=== PATIENT | female | born 2000 | race Caucasian/White ===

== ENCOUNTER 2022-07-03 07:57 | Inpatient (IN) | payer BC, OTHER ==
[2022-07-03] MEDS ORDERED: miSOPROStoL 200 MCG TAB PO PRN (08:16)
[2022-07-03] MEDS ORDERED: TRANEXAMIC ACID IN NACL,ISO-OS 1,000 MG in EMPTY BAG 1 BAG IV PRN (08:16)
[2022-07-03] MEDS ORDERED: LACTATED RINGERS 1,000 ML IV ONE (08:16)
[2022-07-03] MEDS ORDERED: CARBOPROST TROMETHAMINE 250 MCG/ML 1 ML AMP IM PRN (08:16)
[2022-07-03] MEDS ORDERED: OXYTOCIN 10 UNIT/ML 1 ML VIAL IM PRN (08:16)
[2022-07-03] MEDS ORDERED: CITRIC ACID-SODIUM CITRATE 15 ML CUP PO ONE (08:16)
[2022-07-03] MEDS ORDERED: METHYLERGONOVINE 0.2 MG/ML 1 ML AMP IM PRN (08:16)
[2022-07-03 08:32] LABS: Basophils % (A) 0 %; Eosinophils # (A) 0.1 k/uL (0-0.7); Eosinophils % (A) 1 %; HCT 36.8 % (34.0-46.0); HGB 11.7 gm/dL (11.4-16.0); Lymphocytes # (A) 2.3 k/uL (1.0-4.8); Lymphocytes % (A) 19 %; MCH 27.7 pg (25.0-35.0); MCHC 31.8 g/dL (31.0-37.0); MCV 87.3 fL (80.0-100.0); Mean Platelet Volume 7.9; Monocytes # (A) 0.7 k/uL (0-1.0); Monocytes % (A) 5 %; Neutrophils % (A) 72 %; Platelet Count 350 k/uL (150-450); RBC 4.22 m/uL (3.80-5.40); RDW 15.3 % (11.5-15.5); WBC 12.4 k/uL (3.8-10.6)
[2022-07-03] MEDS ORDERED: OXYTOCIN 30 UNITS/500 ML NS BAG IV ONE (09:58)
[2022-07-03] MEDS ORDERED: MORPHINE SULFATE (PF) 0.3 MG/0.3 ML SYR ONE (09:58)
[2022-07-03] MEDS ORDERED: KETOROLAC 15 MG/ML 1 ML VIAL ONE (09:58)
[2022-07-03] MEDS ORDERED: ONDANSETRON 4 MG/2 ML VIAL ONE (09:58)
[2022-07-03] MEDS ORDERED: DEXAMETHASONE SOD PHOSPHATE 4 MG/ML 1 ML VIAL ONE (09:58)
[2022-07-03] MEDS ORDERED: NALBUPHINE 10 MG/ML (1 ML AMP) ONE (09:58)
[2022-07-03] MEDS ORDERED: ePHEDrine 50 MG/ML 1 ML VIAL ONE (09:58)
[2022-07-03] MEDS ORDERED: NALOXONE 0.4 MG/ML 1 ML VIAL IV PRN ×2 (10:47→11:02)
--- NOTE | 2022-07-03 10:58 | P.HPOB ---
History of Present Illness H&P Date: 07/03/22 Chief Complaint: Breech At term This is a 21-year-old 1 para 0 woman with an estimated due date of 07/07/2022 who is admitted at 39-3/7 weeks gestation for planned primary low transverse section secondary to persistent breech presentation. Breech presentation is confirmed by ultrasound. has been otherwise uncomplicated. She has a history of migraine headaches. Blood type O+, antibody screen negative, rubella immune, VDRL nonreactive, hepatitis B surface antigen negative, group B strep negative, gonorrhea and clinic cultures negative Review of Systems All systems: negative Past Medical History Past Medical History: GERD/Reflux History of Any Multi-Drug Resistant Organisms: None Reported Additional Past Surgical History / Comment(s): exploratory lap for endometriosis, EGD, wisdom teeth removed Past Anesthesia/Blood Transfusion Reactions: No Reported Reaction Past Psychological History: Anxiety, Depression Additional Psychological History / Comment(s): used to take med, but not during Smoking Status: Former smoker Past Alcohol Use History: None Reported Additional Past Alcohol Use History / Comment(s): smoked before , since teens, <ppd, no alcohol during Past Drug Use History: Marijuana Additional Drug Use History / Comment(s): before - Past Family History Father Family Medical History: Unable to Obtain Additional Family Medical History / Comment(s): pt is adopted, no info on bio family Medications and Allergies Home Medications Medication Instructions Recorded Confirmed Type Vit No.179/Iron/Folic 1 each PO DAILY 06/29/22 07/03/22 History [ Tablet] Allergies Allergy/AdvReac Type Severity Reaction Status Date / Time amoxicillin AdvReac states Verified 07/03/22 08:15 "doesn't work for me" Exam Vital Signs Temp Pulse Resp BP Pulse Ox 07/03/22 08:36 98.0 F 120 H 18 121/72 98 Intake and Output 07/02/22 07/03/22 07/03/22 22:59 06:59 14:59 Other: Weight 90.718 kg This is a pleasant, visibly gravid female in no apparent distress. HEENT exam is unremarkable. Her breathing is unlabored and her heart is a regular rate and rhythm. The abdomen is gravid, soft and nontender with no palpable contractions. No flank pain. Plus bilateral lower extremity asymmetric edema. Pelvic examination is deferred. Bedside ultrasound confirms breech presentation. heart tones are category 1 and she is irregularly ernesto. Results Result Diagrams: 07/03/22 08:20 Abnormal Lab Results - Last 24 Hours (Table) 07/03/22 Range/Units 08:20 WBC 12.4 H (3.8-10.6) k/uL Neutrophils # 9.0 H (1.3-7.7) k/uL Assessment and Plan (1) Breech presentation Current Visit: Yes Status: Acute Code(s): O32.1XX0 - MATERNAL CARE FOR JAYCEE ECH PRESENTATION, UNSP SNOMED Code(s): 9720329 (2) Term Current Visit: Yes Status: Acute Code(s): Z34.90 - ENCNTR FOR SUPRVSN OF NORMAL , UNSP, UNSP TRIMESTER SNOMED Code(s): 82654624 Plan: This is a 21-year-old 1 para 0 at 39-3/7 weeks gestation admitted for scheduled primary low transverse section secondary to persistent breech presentation. The procedure has been reviewed with the patient in detail and risks include but are not limited to bleeding, transfusion, infection, maternal or injury, anesthesia complications, implications for future pregnancies. Consent has been obtained. status is reassuring by external monitoring. Time with Patient: Less than 30
[2022-07-03] MEDS ORDERED: SIMETHICONE 80 MG CHEWABLE PO PRN (11:02)
[2022-07-03] MEDS ORDERED: HYDROmorphone 1 MG/ML 1 ML SYRINGE IVP PRN (11:02)
[2022-07-03] MEDS ORDERED: diphenhydrAMINE 50 MG/ML 1 ML VIAL IVP PRN (11:02)
[2022-07-03] MEDS ORDERED: ONDANSETRON 4 MG/2 ML VIAL IVP PRN (11:02)
[2022-07-03] MEDS ORDERED: ZOLPIDEM 5 MG TAB PO PRN (11:02)
[2022-07-03] MEDS ORDERED: diphenhydrAMINE 25 MG CAP PO PRN (11:02)
[2022-07-03] MEDS ORDERED: diphenhydrAMINE 50 MG CAP PO PRN (11:02)
[2022-07-03] MEDS ORDERED: METOCLOPRAMIDE 5 MG/ML 2 ML VIAL IVP PRN (11:02)
--- NOTE | 2022-07-03 11:02 | P.OP ---
Date of Procedure: 07/03/22 Preoperative Diagnosis: Term at 39-3/7 weeks Breech presentation Postoperative Diagnosis: Same Procedure(s) Performed: Primary low transverse section Anesthesia: spinal Surgeon: Shazia Arias Skip Operator #1: Felix Szymanski Estimated Blood Loss (ml): 730 IV fluids (ml): 1,000 Urine output (ml): 200 Pathology: none sent Condition: stable Disposition: floor Indications for Procedure: Persistent breech presentation Operative Findings: Male infant in the complete breech presentation with Apgars of 9 at 1 minute and 9 at 5 minutes weighing 6 lbs. 14 oz., 3120 g. Normal-appearing bilateral fallopian tubes, ovaries and uterus. Description of Procedure: After the patient was met in the preoperative holding area and all portions were answered, she was taken to the operating room where spinal anesthetic was administered without incident. She was in positioned, prepped and draped in the dorsal supine position with a leftward tilt. Cheng catheter was in place. After anesthetic was confirmed adequate a low transverse skin incision was made and carried down to the underlying fascia sharply and with the electrocautery. Fascia was incised in the midline and extended bilaterally with Costa scissors. The superior aspect of the fascial incision was elevated and the underlying rectus muscles were dissected off sharply. The inferior aspect of the fascial incision was also elevated and the underlying rectus muscles dissected off sharply. Rectus muscles were bluntly in the midline and the peritoneum was tented up and entered sharply. The peritoneal incision was extended inferiorly and superiorly with good visualization of the bladder. Bladder blade was placed. Vesicouterine peritoneum was identified, tented up and the bladder flap was created sharply. Bladder blade was replaced and a low transverse uterine incision was made. This was carried down to the underlying amniotic membranes sharply. Membranes were ruptured and clear fluid was noted. Off was present at the incision. was found to be in the complete breech presentation. Both feet were grasped and gently delivered from the incision. The infant was rotated 12 for delivery of the sacrum anterior. The infant was then further delivered gently to the level of the scapula. Rotation allow for delivery of the anterior and posterior shoulders. The head was flexed and delivered without difficulty. The nose and mouth were bulb suctioned and the infant was handed off to the nursing staff. An intact, three-vessel cord placenta was then manually removed. The uterus was exteriorized and cleared of all clot and debris. The uterine incision was then closed in a running locked fashion with 0 Vicryl suture followed by second imbricating layer of the same. Additional [id number] sutures 2 were placed for hemostasis. The uterus was returned to the abdomen and the gutters were cleared of all clot and debris. The uterine incision was reinspected and additional [id number] suture 1 was placed. There was some oozing noted along the interior of the bladder flap therefore the Surgicel powder was placed and hemostasis was noted. The rectus muscles, fascial edges and peritoneal edges were all inspected and noted to be hemostatic. Bovie electrocautery was utilized were necessary. The fascia was then closed in a running fashion with 0 Vicryl suture. The subcuticular tissue was copiously suction irrigated and reapproximated with 3-0 chromic. The skin was then closed in a subcuticular fashion with 4-0 Vicryl suture. All counts reported to me as correct by the operating room staff. The patient was transported to the recovery area in good condition.
[2022-07-03] MEDS ORDERED: OXYTOCIN 30 UNITS/500 ML NS 30 UNIT in SALINE 1 500ML.BAG IV SCH (11:15)
[2022-07-03] MEDS: diphenhydrAMINE 50 MG/ML 1 ML VIAL IVP PRN (12:36)
[2022-07-03] MEDS: LACTATED RINGERS 1,000 ML IV SCH ×3 (12:36→20:40)
[2022-07-03] MEDS ORDERED: MEASLES-MUMPS-RUBELLA VACC/PF 12,500 UNIT/0.5 ML VIAL SQ ONE (12:59)
[2022-07-03] MEDS: IBUPROFEN IV 800 MG in SODIUM CHLORIDE 0.9% 250 ML IV SCH (17:07)
[2022-07-03] MEDS: IBUPROFEN 600 MG TAB PO SCH ×2 (20:20→23:59)
[2022-07-03] MEDS: ACETAMINOPHEN TAB 500 MG TAB PO SCH (20:20)
[2022-07-04] MEDS: diphenhydrAMINE 50 MG/ML 1 ML VIAL IVP PRN (00:28)
[2022-07-04] MEDS: ACETAMINOPHEN TAB 500 MG TAB PO SCH ×4 (00:44→16:19)
[2022-07-04] MEDS: SENNOSIDES-DOCUSATE SODIUM 1 EACH TAB PO SCH ×3 (00:44→20:25)
[2022-07-04] MEDS: LACTATED RINGERS 1,000 ML IV SCH ×5 (04:00→17:21)
--- NOTE | 2022-07-04 06:12 | P.PN ---
Progress Note - Text 07/04/22 551am 21-year-old female status post with spinal Duramorph. Patient seen and evaluated for postop pain control, she has a VAS of 3 with no complains of nausea vomiting or pruritus.
[2022-07-04] MEDS: IBUPROFEN 600 MG TAB PO SCH ×3 (07:25→20:25)
[2022-07-04] MEDS: IBUPROFEN IV 800 MG in SODIUM CHLORIDE 0.9% 250 ML IV SCH ×5 (07:26→18:05)
[2022-07-04 07:59] LABS: Basophils % (A) 0 %; Eosinophils # (A) 0.1 k/uL (0-0.7); Eosinophils % (A) 1 %; HGB 10.3 gm/dL (11.4-16.0); Lymphocytes # (A) 2.7 k/uL (1.0-4.8); Lymphocytes % (A) 21 %; MCH 28.2 pg (25.0-35.0); MCHC 32.1 g/dL (31.0-37.0); MCV 87.8 fL (80.0-100.0); Mean Platelet Volume 8.6; Monocytes # (A) 0.9 k/uL (0-1.0); Monocytes % (A) 7 %; Neutrophils # (A) 8.5 k/uL (1.3-7.7); Neutrophils % (A) 67 %; Platelet Count 299 k/uL (150-450); RBC 3.64 m/uL (3.80-5.40); RDW 15.9 % (11.5-15.5); WBC 12.7 k/uL (3.8-10.6)
--- NOTE | 2022-07-04 08:51 | P.PNOBGPC ---
Subjective - Subjective Patient reports: Reports appetite normal, Reports voiding normally, Reports pain well controlled, Reports ambulating normally : doing well Objective - Vital Signs Latest vital signs: Vital Signs Temp Pulse Resp BP Pulse Ox 07/04/22 08:34 16 07/04/22 08:00 97.9 F 93 16 97/67 98 07/04/22 07:00 90 16 98 07/04/22 05:00 18 07/04/22 04:00 98.1 F 80 18 99/62 97 07/04/22 03:00 16 07/04/22 01:00 16 07/03/22 23:58 98.1 F 103 H 18 117/71 96 07/03/22 22:57 16 07/03/22 20:50 18 07/03/22 20:00 98.1 F 88 18 107/69 97 07/03/22 19:00 16 98 07/03/22 17:00 16 07/03/22 16:00 98.4 F 110 H 16 118/66 96 07/03/22 15:47 16 98 07/03/22 12:27 95 16 113/60 98 07/03/22 12:00 97.6 F 95 16 122/57 98 07/03/22 11:47 98 07/03/22 11:42 89 16 96/53 07/03/22 11:27 103 H 16 96/50 96 07/03/22 10:57 97.6 F 96 16 111/53 96 07/03/22 10:47 16 98 Intake and Output 07/03/22 07/04/22 07/04/22 22:59 06:59 14:59 Output Total 1712 500 Balance -1712 -500 Output: Urine 1600 500 Uretheral (Cheng) 1100 Output, Quantitative 112 Blood Loss Other: Voiding Method Indwelling Catheter # Voids 2 - Exam Extremities: Present: normal Abdomen: Present: normal appearance, soft. Absent: distention, tenderness Incision: Present: normal, dry, intact Uterus: Present: normal, firm (the uterine fundus as tonic and appropriate tender just below the umbilicus.) - Labs Labs: Abnormal Lab Results - Last 24 Hours (Table) 07/04/22 Range/Units 07:35 WBC 12.7 H (3.8-10.6) k/uL RBC 3.64 L (3.80-5.40) m/uL Hgb 10.3 L (11.4-16.0) gm/dL Hct 32.0 L (34.0-46.0) % RDW 15.9 H (11.5-15.5) % Neutrophils # 8.5 H (1.3-7.7) k/uL Assessment and Plan (1) Status post section Current Visit: Yes Status: Acute Code(s): Z98.891 - HISTORY OF UTERINE SCAR FROM PREVIOUS SURGERY SNOMED Code(s): 625421528 Plan: continue routine and postoperative care. I have encouraged the patient in the hallways routinely. I would anticipate possible discharge home tomorrow pending no complications.
[2022-07-04] MEDS: HYDROmorphone 2 MG TAB PO PRN (18:52)
[2022-07-05] MEDS: ACETAMINOPHEN TAB 500 MG TAB PO SCH ×3 (00:02→12:33)
[2022-07-05] MEDS: HYDROmorphone 2 MG TAB PO PRN (00:06)
[2022-07-05] MEDS: IBUPROFEN 600 MG TAB PO SCH ×2 (02:37→08:57)
[2022-07-05] MEDS: LACTATED RINGERS 1,000 ML IV SCH ×5 (04:30→12:56)
[2022-07-05] MEDS: IBUPROFEN IV 800 MG in SODIUM CHLORIDE 0.9% 250 ML IV SCH ×2 (04:31→10:24)
[2022-07-05] MEDS: SENNOSIDES-DOCUSATE SODIUM 1 EACH TAB PO SCH (08:02)
--- NOTE | 2022-07-05 08:34 | P.DS ---
Providers Date of admission: 07/03/22 07:57 Expected date of discharge: 07/05/22 Attending physician: Stacia Cruz MD Primary care physician: Stated None - Discharge Diagnosis(es) (1) Breech presentation Current Visit: Yes Status: Acute (2) Term Current Visit: Yes Status: Acute (3) Status post section Current Visit: Yes Status: Acute Hospital Course: 21-year-old 1 now para 1 woman who is admitted at 39-3/7 weeks gestation for planned primary low transverse section secondary to breech presentation. Following admission she went to the operating room where she underwent an unremarkable primary low transverse section. Findings at the time of surgery were significant for a male in the caesar breech presentation with Apgars of 9 at 1 minute and 9 at 5 minutes weighing 6 lbs. 14 oz. Please see the operative report for details. The patient's postoperative course was unremarkable. By postoperative day #1 she was able to ambulate and void without difficulty with a Cheng catheter removed. Her pain was well controlled and her postoperative labs were within normal limits. By post operative day #2 she continued to do well. She did have some issues with pain control though ultimately resolved satisfactorily. Her incision appeared to be well healing and intact. Her lochia was minimal and she is breast-feeding successfully. She was therefore discharged home with routine instructions for postoperative care and follow-up. Patient Condition at Discharge: Good Plan - Discharge Summary Discharge Rx Participant: No New Discharge Prescriptions: New HYDROmorphone [Dilaudid] 2 mg PO Q4HR PRN #10 tab PRN Reason: Pain Scale 4 - 6 Acetaminophen Tab [Tylenol] 1,000 mg PO Q6H tab Ibuprofen [Motrin] 800 mg PO Q8H PRN #30 tab PRN Reason: Pain No Action Vit No.179/Iron/Folic [ Tablet] 1 each PO DAILY Discharge Medication List Vit No.179/Iron/Folic [ Tablet] 1 each PO DAILY 06/29/22 [History] Acetaminophen Tab [Tylenol] 1,000 mg PO Q6H tab 07/05/22 [Rx] HYDROmorphone [Dilaudid] 2 mg PO Q4HR PRN #10 tab 07/05/22 [Rx] Ibuprofen [Motrin] 800 mg PO Q8H PRN #30 tab 07/05/22 [Rx] Follow up Appointment(s)/Referral(s): Stacia Cruz MD [STAFF PHYSICIAN] - 2 Weeks Activity/Diet/Wound Care/Special Instructions: Follow-up in 2 weeks after surgery in the office. Call the office with any concerning signs or symptoms including fever greater than 101, severe abdominal pain, heavy vaginal bleeding, signs of wound infection, increased swelling or redness of the lower extremities, signs of depression. No driving for 2 weeks after surgery. No heavy lifting or vigorous activity until reevaluated in the office. No intercourse for 6 weeks after delivery. Discharge Disposition: HOME SELF-CARE
[2022-07-05 10:19] VITALS: RESP 16; TEMP 97.7
[2022-07-05 12:53] VITALS: BP 117/78; PULSE 86
== END 2022-07-05 12:30 | disposition home or self-care (01) | DRG 788 ==
LOC: 4FBP 07:57
PROVIDERS: ADMIT Obstetrics & Gynecology; ATTEND Obstetrics & Gynecology
PROC: 3E0134Z Introduction of Serum, Toxoid and Vaccine into Subcutaneous Tissue, Percutaneous Approach (ICD-10-PCS; principal; 2022-07-03 10:00)
PROC: 10D00Z1 Extraction of Products of Conception, Low, Open Approach (ICD-10-PCS; principal; 2022-07-03 10:00)
DX: O32.1XX0 Maternal care for breech presentation, not applicable or unspecified (principal); O99.344 Other mental disorders complicating childbirth; F32.A Depression, unspecified; F41.9 Anxiety disorder, unspecified; O99.62 Diseases of the digestive system complicating childbirth; K21.9 Gastro-esophageal reflux disease without esophagitis; Z87.891 Personal history of nicotine dependence; Z88.0 Allergy status to penicillin; Z28.310 Unvaccinated for COVID-19; Z23 Encounter for immunization; Z3A.39 39 weeks gestation of pregnancy; Z37.0 Single live birth
CPT/HCPCS: 85025; 86850; 86900; 86901; 90707